=== PATIENT | male | born 1985 | race Caucasian/White ===

== ENCOUNTER 2022-08-03 02:38 | Emergency (ER) | payer BC, MEDICAID ==
[2022-08-03] MEDS ORDERED: Octyl 2-Cyanoacrylate 1 g/1 mL 1 APPLIC PEN TOP ONE (02:50)
== END 2022-08-03 03:09 | disposition home or self-care (01) ==
LOC: MW.ED 02:38
DX: S21.119A Laceration without foreign body of unspecified front wall of thorax without penetration into thoracic cavity, initial encounter (principal); I10 Essential (primary) hypertension; E11.9 Type 2 diabetes mellitus without complications; W55.03XA Scratched by cat, initial encounter
CPT/HCPCS: 12001; 99282; A9270